=== PATIENT | female | born 1995 | race Caucasian/White ===

== ENCOUNTER 2016-11-03 21:19 | Emergency (ER) | payer OTHER ==
--- NOTE | 2016-11-03 21:48 | EDM.PDOC ---
ED HPI Trauma - General Chief Complaint: Lower Extremity Injury/Pain Stated Complaint: PT HURT LT ANKLE Time Seen by Provider: 11/03/16 21:47 Source: Reports: Patient - History of Present Illness INITIAL COMMENTS - FREE TEXT/NARRATIVE: HISTORY AND PHYSICAL: History of present illness: [] Patient jumping on trampoline general the ankle complains of 5/10 nonradiating pain left ankle moderate swelling over lateral malleolus no bruising No fever nausea vomiting chills sweats Review of systems: As per history of present illness and below otherwise all systems reviewed and negative. Past medical history: As per history of present illness and as reviewed below otherwise noncontributory. Surgical history: As per history of present illness and as reviewed below otherwise noncontributory. Social history: No reported history of drug or alcohol abuse. Family history: As per history of present illness and as reviewed below otherwise noncontributory. Physical exam: HEENT: Atraumatic, normocephalic, pupils reactive, negative for conjunctival pallor or scleral icterus, mucous membranes moist, throat clear, neck supple, nontender, trachea midline. Lungs: Clear to auscultation, breath sounds equal bilaterally, chest nontender. Heart: S1S2, regular, negative for clicks, rubs, or JVD. Abdomen: Soft, nondistended, nontender. Negative for masses or hepatosplenomegaly. Negative for costovertebral tenderness. Pelvis: Stable nontender. Genitourinary: Deferred. Rectal: Deferred. Extremities: Atraumatic, negative for cords or calf pain. Neurovascular unremarkable. Left ankle and affected above the ankle there is moderate swelling over the lateral malleolus no bruising entirely neurovascularly intact Neuro: Awake, alert, oriented. Cranial nerves II through XII unremarkable. Cerebellum unremarkable. Motor and sensory unremarkable throughout. Exam nonfocal. Diagnostics: [] HCG, left ankle complete Therapeutics: [] Rest ice ibuprofen Air splint Crutches Impression: [] Left ankle pain/sprain Definitive disposition and diagnosis as appropriate pending reevaluation and review of above. Allergies/ADRs: Allergies No Known Allergies Allergy (Verified 11/03/16 21:45) Home Medications: Ambulatory Orders . [No Known Home Meds] 11/03/16 [Confirmed 11/03/16] Review of Systems - Review of Systems Review Of Systems: ROS reveals no pertinent complaints other than HPI. Trauma Exam - Physical Exam Exam: See Below Course - Vital Signs Last Recorded V/S: Last Vital Signs Temp 37.4 C 11/03/16 21:50 Pulse 85 11/03/16 21:50 Resp 18 11/03/16 21:50 BP 125/78 11/03/16 21:50 Pulse Ox 100 11/03/16 21:50 - Orders/Labs/Meds Orders: Active Orders 24 hr Category Date Time Status Ankle Min 3V Lt [CR] Stat Exams 11/03/16 21:27 Taken Labs: Laboratory Tests 11/03/16 Range/Units 21:45 Urine HCG, Qual NEGATIVE (NEGATIVE) Meds: Medications Discontinued Medications Generic Name Dose Route Start Last Admin Trade Name Omega PRN Reason Stop Dose Admin Ketorolac Tromethamine 60 mg 11/03/16 21:48 11/03/16 21:57 Toradol IM 11/03/16 21:49 60 mg ONETIME ONE Administration Departure - Departure Time of Disposition: 22:38 Disposition: Home, Self-Care 01 Condition: good Clinical Impression: Left ankle sprain Forms: ED Department Discharge Additional Instructions: Medication as prescribed Ibuprofen 400 mg 3 times daily 7-10 days Ice 20 minute intervals 3 times daily 7-10 days Elevate foot while at rest Crutches and nonweightbearing Air splint Followup with orthopedist, call for appropriate appointment [facility] [address], [address] [place] [address] my orthopedic The following information is given to patients seen in the emergency department who are being discharged to home. This information is to outline your options for follow-up care. We provide all patients seen in our emergency department with a follow-up referral. The need for follow-up, as well as the timing and circumstances, are variable depending upon the specifics of your emergency department visit. If you don't have a primary care physician on staff, we will provide you with a referral. We always advise you to contact your personal physician following an emergency department visit to inform them of the circumstance of the visit and for follow-up with them and/or the need for any referrals to a consulting specialist. The emergency department will also refer you to a specialist when appropriate. This referral assures that you have the opportunity for follow-up care with a specialist. All of these measure are taken in an effort to provide you with optimal care, which includes your follow-up. Under all circumstances we always encourage you to contact your private physician who remains a resource for coordinating your care. When calling for follow-up care, please make the office aware that this follow-up is from your recent emergency room visit. If for any reason you are refused follow-up, please contact the [facility] emergency department at and asked to speak to the emergency department charge nurse.
[2016-11-03] MEDS: Ketorolac 60 MG/2 ML SDV IM ONE (21:57)
[2016-11-03 22:05] VITALS: BP 125/78
[2016-11-04] MEDS: Ketorolac 60 MG/2 ML SDV IM ONE (00:21)
--- NOTE | 2016-11-04 15:30 | CR ---
MEXAM DATE: 11/03/16 PATIENT'S AGE: 21 Patient: EVERARDO MENDOZA Facility: [place], [place] Site . Site : 1995 Study: XRay Extremity Left Ankle [id number] 10:09:27 PM Ordering Physician: Doctor nSell Final Report: INDICATION: Ankle pain, trampoline injury TECHNIQUE: Ankle radiograph 3 views COMPARISON: None FINDINGS: Bones: Alignment is normal. No acute fractures or aggressive osseous lesions seen. Joint spaces: The visualized tibiotalar, subtalar, and midfoot joints are unremarkable in appearance. No joint effusion is seen. Ankle mortise congruent. Soft tissues: Extensive soft tissue swelling overlying the lateral malleolus. IMPRESSION: 1. Extensive lateral left ankle soft tissue swelling. No acute fracture. Dictated by Dhruv Ohara MD @ 11/03/2016 10:33:17 PM Dictated by: Dhruv Ohara MD @ 11/03/2016 22:33:27 (Electronic Signature) Report Signed by Proxy. ABEBE
== END 2016-11-03 23:15 | disposition home or self-care (01) ==
LOC: MW.ED 21:19
DX: S93.402A Sprain of unspecified ligament of left ankle, initial encounter (principal); Y93.44 Activity, trampolining
CPT/HCPCS: 73610; 81025; 96372; 99283; J1885

== ENCOUNTER → 2016-11-14 | Outpatient (CLI) | payer OTHER ==
--- NOTE | 2016-11-14 20:48 | CR ---
EXAM DATE: 11/14/16 PATIENT'S AGE: 21 Patient: EVERARDO MENDOZA Facility: [place], [place] Site . Site : 1995 Study: XRay Extremity Left Ankle [id number] 12:17:49 PM Ordering Physician: Konstantin Portillo Final Report: HISTORY: Left ankle swelling. Technique: Three views of the left ankle. Comparison: 11/03/2016. Findings: There is no acute fracture. Soft tissue swelling overlies the lateral malleolus. The ankle mortise appears symmetric. There is increased soft tissue density anterior to the ankle joint on the lateral film which may indicate the presence of a joint effusion. Joint spaces are otherwise maintained. Impression: 1. No acute fracture. 2. Soft tissue swelling overlying the lateral malleolus. 3. Possible ankle joint effusion. Dictated by Sanket Nassar MD @ Nov 14 2016 2:39PM (Electronic Signature) Report Signed by Proxy. ABEBE
== END ==
LOC: MW.DI 10:52
PROVIDERS: ATTEND Nurse Practitioner
DX: M25.472 Effusion, left ankle (principal)
CPT/HCPCS: 73610-26-LT; 73610-LT